=== PATIENT | female | born 2000 | race African-American/Black ===

== ENCOUNTER 2019-09-22 08:42 | Emergency (ER) | payer MEDICAID ==
[2019-09-22 09:17] VITALS: BP 122/57
--- NOTE | 2019-09-22 10:22 | ER Document Report ---
ED General - General Chief Complaint: Cold Symptoms Stated Complaint: COLD SYMPTOMS Time Seen by Provider: 09/22/19 10:13 Mode of Arrival: Ambulatory Information source: Patient TRAVEL OUTSIDE OF THE [place] IN LAST 30 DAYS: No - HPI Notes: Patient presents with congestion. She states she has had this for 3 to 4 days. Congestion is constant. Nothing makes it better or worse. There is no radiation of the symptom. It is mild to moderate. She denies any fevers. She has had a minimal dry cough. She states she was having some trouble tasting her food earlier in the week but he is not currently still have that problem. No known exposures to the COVID virus. - Related Data Allergies/Adverse Reactions: No Known Allergies Allergy (Verified 09/22/19 09:40) Past Medical History - General Information source: Patient - Social History Smoking Status: Never Smoker Frequency of alcohol use: None Drug Abuse: None Family History: Other - Asthma Patient has homicidal ideation: No Pulmonary Medical History: Reports: Hx Bronchitis - Immunizations Immunizations up to date: Yes Hx Diphtheria, Pertussis, Tetanus Vaccination: Yes Review of Systems - Review of Systems Constitutional: denies: Chills, Fever Cardiovascular: denies: Chest pain, Palpitations Respiratory: Cough. denies: Short of breath Physical Exam - Vital signs Vitals: Temp 98.6 F 09/22/19 09:00 Interpretation: Normal - General General appearance: Appears well, Alert In distress: None - HEENT Head: Normocephalic, Atraumatic Eyes: Normal Pupils: PERRL - Respiratory Respiratory status: No respiratory distress Breath sounds: Normal - Cardiovascular Notes: no jvd - Abdominal Inspection: Normal Distension: No distension - Back Back: Normal - Extremities General upper extremity: Normal inspection, Normal color, Normal ROM General lower extremity: Normal inspection, Normal color, Normal ROM, Normal weight bearing. No: Sushila's sign - Neurological Neuro grossly intact: Yes Cognition: Normal Orientation: AAOx4 Jennifer Coma Scale Eye Opening: Spontaneous [place] Coma Scale Verbal: Oriented [place] Coma Scale Motor: Obeys Commands [place] Coma Scale Total: 15 Speech: Normal - Psychological Associated symptoms: Normal affect, Normal mood - Skin Skin Moisture: Dry Skin Color: Normal Course - Vital Signs Vital signs: Temp Pulse Resp BP Pulse Ox 98.6 F 68 14 122/57 L 99 09/22/19 09:16 09/22/19 09:16 09/22/19 09:16 09/22/19 09:16 09/22/19 09:16 Discharge - Discharge Clinical Impression: Person under investigation for COVID-19, Viral syndrome Condition: Stable Disposition: HOME, SELF-CARE Instructions: Viral Syndrome (OM) Additional Instructions: Please quarantine until the results of your Covid test have returned Forms: Return to Work Referrals: [facility] [Provider Group] - Follow up in 3-5 days
== END 2019-09-22 10:59 | disposition home or self-care (01) ==
LOC: ER 08:42
DX: B34.9 Viral infection, unspecified (principal); R05 Cough; Z20.828 Contact with and (suspected) exposure to other viral communicable diseases
CPT/HCPCS: 99283; 87070; 87880; 87635; C9803